=== PATIENT | female | born 1975 | race Caucasian/White ===

== ENCOUNTER → 2020-01-16 12:44 | Outpatient (CLI) | payer MEDICARE, SELFPAY ==
[2019-11-02 16:21] VITALS: BMI 33.9
--- NOTE | 2020-01-16 12:51 | VDLE_ITS ---
Reason For Study: Pain in left calf RIGHT LEFT CFV is compressible, spontaneous, phasic, GSV is normal. competent and demonstrates normal CFV is compressible, spontaneous, phasic, augmentation. competent, and demonstrates normal Procedure augmentation. Exam performed in department. FV is compressible, spontaneous, phasic, A preliminary report was called and/or faxed competent and demonstrates normal to Jacobo. augmentation. POP V is compressible, spontaneous, phasic, competent and demonstrates normal augmentation. T/P Trunk is compressible. PTV is compressible. LT PerV is compressible. Interpretation Summary Deep veins of the left lower extremity are patent and compressible segmentally. There is no evidence of left lower extremity deep vein thrombosis. Valvular competence appears intact within the proximal deep venous system on the left . The left great saphenous vein appears patent and compressible segmentally. Ordering Physician: Yris Centeno Referring Physician: uCrtis Kwon Performed By: Nasreen Nieves RVT
== END ==
PROVIDERS: PCP Student in an Organized Health Care Education/Training Program; Referring Provider Nurse Practitioner Family; Visit Provider Nurse Practitioner Family
DX: M79.662 Pain in left lower leg (principal); Z86.718 Personal history of other venous thrombosis and embolism
CPT/HCPCS: 93971

== ENCOUNTER → 2020-06-07 12:35 | Outpatient (CLI) | payer MEDICARE, SELFPAY ==
[2020-06-07 10:46] VITALS: BMI 33.9
[2020-06-07 13:15] LABS: Mucous, Urine 0 SEEN /hpf (<or=2+); Red Blood Cells-Urine 0 SEEN /hpf (0-5)
[2020-06-07 13:28] LABS: Glucose, Dipstick Normal (Normal); Ketone-Dipstick 5 mg/dl (Negative); Leukocyte Esterase-Dipstick 500 /ul (Negative); Nitrite-Dipstick Positive (Negative); Occult Blood-Urine 150 /ul (Negative); Protein-Dipstick 30 mg/dl (Negative); Specific Gravity, Urine 1.025 (1.002-1.030); Urine Clarity Cloudy (Clear); Urine Urobilinogen 8 mg/dl (Normal)
[2020-06-07 13:29] LABS: Color, Urine SEE COMMENT BELOW (Yellow); Urine Bilirubin Dipstick 6 mg/dL (Negative)
[2020-06-07 13:40] LABS: Bacteria 2+ /hpf (None Seen); Squamous Epithelial Cells - UA 5-10 SEEN /hpf (5-10); White Blood Cells >100 SEEN /hpf (0-5)
== END ==
PROVIDERS: PCP Student in an Organized Health Care Education/Training Program; Referring Provider Physician Assistant Surgical; Visit Provider Physician Assistant Surgical
DX: N30.00 Acute cystitis without hematuria (principal); M54.5 Low back pain; R35.0 Frequency of micturition
CPT/HCPCS: 81001; 87086; 87088; 87186

== ENCOUNTER 2020-10-23 11:05 | Outpatient (RCR) | payer MEDICARE, SELFPAY ==
[2020-06-07 10:46] VITALS: BMI 33.9
--- NOTE | 2020-10-23 11:42 | HP.PTEVAL_ITS ---
Patient's Visit Information DANIELLE GRACE is a 45 year old F referred to Physical Therapy by Nathan Polanco PA-C with a diagnosis of lat epicondylitis. Date of Evaluation: 10/23/20 Physical Therapist: Keith Araya DPT, OCS, CSCS - Visit Plan Frequency: 1-2x /Week Duration: 2-4 Weeks Plan: 1-2x/week as needed for 2-4 weeks for. Ensure pain continues to diminish. Stretching adn STM to L wrist extensors. eccentric strength. modalities US as needed. - Subjective Slipped letting dogs out and grabbed banister and grabbed with L arm and it hurts. That was in August. It got a little better but then wosened. Uses L hand alot despite being R handed. Dumping patino with L hand hurts. Gripping items huts. Pain is lateral epicondyle area. It is intermittent since steroids started Wednesday. Now it is almost no there. They will end in 3 days. No other treatments. Sleep is interrupted prior to steroids but is good now. Worse in am prior to steroids. Steroids helped 85-90%. Not employed. Does yoga and this does not stop that. - Pain L lat epicondyle elbow Pain Intensity (Out of 10): 0 Pain Intensity Range: 0, 1 Comment: up to 6/10 last week at this time before steroids. - Objective Walks and transfers normal adn I. Neck ROM is limited to 30 rotations and 28 extension which is normal for this patient and painfree. UE AROM WFL and without pain today. reflexes 2/3 bi and tri. Sensation UE WNL to gross light touch. Strength shoulder 4/5, elbow 4+/5 no pain. wrist extension slightly painful at 4- adn flexion 4+. supination and pronation normal, thumb ext normal and painfree to resistance. Tender spot only over insertion wrist extensors on lat epicondyle minimally. Pt states she is much better since starting steroids and could not have tolerated this 4 days ago. - Goals Goal 1:: Pain abolished 100% Goal Time Frame: 4-6 Weeks Goal 2:: cook food without noticing L UE. Goal Time Frame: 4-6 Weeks Goal 3:: I management of condition Goal Time Frame: 4-6 Weeks - Rehabilitation Potential Physical Therapy Diagnosis: L lat epicondylitis. Rehabilitation Potential: Good - Anticipated Interventions Patient/Client Instruction: Educate patient on: Condition, Plan of Care For the Purpose of:: To decrease pain Therapeutic Exercise to Include: Strength training, Flexibilty training, Passive ROM, Active ROM For the Purpose of:: To decrease pain, To improve nutrient delivery to tissue Manual Therapy Techniques to Include: Soft tissue mobilization For the Purpose of:: To decrease pain Ultrasound (thermal/non thermal): Yes - nonthermal lat epi L For the Purpose of:: To decrease pain, To decrease swelling/inflammation Thank you for the opportunity to evaluate your patient. For Medicare and Medicare HMO plans, please review the plan of care and approve it. It will need to be FAXED BACK to us at [phone] for Medicare purposes. For Medicare only, by signing this I certify the plan of care. Please let me know if there are questions or concerns regarding this plan of care. Physician Signature: Date:
--- NOTE | 2020-12-18 08:19 | HP.PT.NRP ---
DANIELLE GRACE was seen in my office for initial evaluation on 10/23/20. The following Plan of Care was established for this patient: Initial Frequency: 1-2x /Week Initial Duration: 2-4 Weeks Patient/Client Instruction: Educate patient on: Condition, Plan of Care For the Purpose of:: To decrease pain Therapeutic Exercise to Include: Strength training, Flexibilty training, Passive ROM, Active ROM For the Purpose of:: To decrease pain, To improve nutrient delivery to tissue Manual Therapy Techniques to Include: Soft tissue mobilization For the Purpose of:: To decrease pain Ultrasound (thermal/non thermal): Yes - nonthermal lat epi L For the Purpose of:: To decrease pain, To decrease swelling/inflammation This patient was last seen in our office 10/23/20. Pertinent comments regarding their Physical therapy will appear below: Pt seen for eval and was improving. POC established but patient neglected to attend any further visits. at this point, it has been nearly two months adn I will discontinue due to nonattendance. At this point I will be discontinuing this patient from physical therapy. I would be happy to see this patient again in the future if found appropriate by the physician. Thank you! Keith Araya, DPT, OCS, CSCS
== END 2020-10-23 19:00 | disposition home or self-care (01) ==
LOC: PT 11:05
PROVIDERS: PCP Student in an Organized Health Care Education/Training Program; Referring Provider Physician Assistant; Visit Provider Physician Assistant
DX: M77.12 Lateral epicondylitis, left elbow (principal)
CPT/HCPCS: 97110; 97161

== ENCOUNTER 2021-05-30 14:04 | Outpatient (CLI) | payer MEDICARE, SELFPAY ==
[2021-05-30] MEDS: 0.9% Saline Lock 10 ML Syringe IV (14:28)
[2021-05-30 14:32] VITALS: BP 125/87; PULSE 89; RESP 16; TEMP 36.3; O2SAT 97; BMI 36.8
[2021-05-30 15:25] VITALS: BP 114/74; PULSE 89; RESP 18; TEMP 36.6; O2SAT 95
[2021-05-30 16:24] VITALS: BP 120/75; PULSE 89; RESP 16; TEMP 37.2; O2SAT 97
== END 2021-05-30 16:25 | disposition home or self-care (01) ==
LOC: ICUOUT 14:04 → MS3 14:05
PROVIDERS: PCP Student in an Organized Health Care Education/Training Program; Referring Provider Nurse Practitioner Adult Health; Visit Provider Nurse Practitioner Adult Health
DX: Z23 Encounter for immunization (principal); U07.1 COVID-19
CPT/HCPCS: J7050; M0245; A4216; Q0244

== ENCOUNTER 2021-06-02 16:32 | Emergency (ER) | payer MEDICARE, SELFPAY ==
[2021-06-02 16:33] VITALS: BP 115/83; PULSE 91; RESP 18; TEMP 36.6; O2SAT 97; BMI 36.8
--- NOTE | 2021-06-02 18:28 | RAD_ITS ---
HISTORY: covid EXAMINATION/TECHNIQUE: XR Chest 1 View: Portable upright AP chest x-ray COMPARISON: 04/01/16 FINDINGS: LINES/DEVICES: None. LUNGS: No consolidation, edema or effusion. No pneumothorax. MEDIASTINUM AND CARDIOVASCULAR STRUCTURES: Cardiac silhouette not enlarged. Central airways and mediastinal contour are unremarkable. BONES AND SOFT TISSUES: No acute bony abnormalities. Anterior cervical fusion hardware partially imaged. RAD/Chest 1 View IMPRESSION: No radiographic evidence of acute cardiopulmonary disease. at 1853 Reported and signed by: Dawson Serrano MD Electronically Signed: Dawson Serrano MD at 18:52 EDT Tel , Service support ,
--- NOTE | 2021-06-02 18:33 | ED.RN ---
Pt. presents with increased SOB since Wednesday. Tested positive for covid six days ago. Pt. reports productive cough. Lungs clear in all bases.
--- NOTE | 2021-06-02 18:33 | ED.VIS.DYS ---
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 Was diagnosed with Covid 1 week ago. And had symptoms started last Wednesday. She has had intermittent low-grade fevers. Cough and shortness of breath. No hemoptysis. She is currently on prednisone for the last week. She is also had monoclonal antibody therapy on Wednesday. PE Risk Factors: Positive for Prior DVT or PE; Negative for Cancer, OCP + Smoking + > 35, Recent immobilization, Recent surgery and Recent travel Prior similar symptoms: No Recent Illness/Hospitalization: No PFSH PFS Medical History Arthritis Asthma Chronic neck and back pain DISK FUSION HISTORY OF BROKEN NECK HISTORY OF UVULA REMOVAL Knee pain Severe headache Stroke Home Medications clonazepam 0.5 mg PO TID 07/12/13 [History Last Taken 08/16/13] gabapentin 800 mg PO TIDCM 07/12/13 [History Last Taken 08/16/13 800] tizanidine 4 mg PO BID 07/12/13 [History Last Taken 08/16/13 8] acetaminophen 325 mg tablet 325 mg PO ONCE PRN 11/02/19 [History Last Taken Unknown] quetiapine 25 mg tablet 25 mg PO DAILY 11/02/19 [History Last Taken Unknown] ropinirole 1 mg tablet 1 mg PO DAILY 11/02/19 [History Last Taken Unknown] cranberry fruit concentrate 250 mg chewable tablet 250 mg PO TID 06/07/20 [History Last Taken Unknown] hydrocodone-homatropine [Hycodan] 5 ml PO Q6H PRN 4 Days #35 ml 06/02/21 [Rx Last Taken Unknown] Allergy/AdvReac Type Severity Reaction Status Date / Time Sulfa (Sulfonamide Allergy Hives Verified 06/02/21 18:31 Antibiotics) acetaminophen [From [place]] AdvReac Other Verified 06/02/21 18:31 hydrocodone bitartrate AdvReac Other Verified 06/02/21 18:31 [From [place]] Surgical History H/O gastric bypass H/O right knee surgery History of hysterectomy History of tonsillectomy Social History Smoking Status: Never smoker alcohol intake: never ROS ROS ED ROS Narrative Cough, fever and mild shortness of breath. Review of Systems ROS Unobtainable: Denies due to encephalopathy Constitutional Constitutional ED: Reports fever(s) Eyes Eyes: Denies change in vision ENT ENT ED: Denies ear pain or sore throat Cardiovascular Cardiovascular: Denies chest pain Respiratory/Chest Respiratory/Chest: Reports cough and dyspnea Gastrointestinal Gastrointestinal: Denies abdominal pain, diarrhea, nausea or vomiting Genitourinary Genitourinary ED: Denies dysuria Musculoskeletal Musculoskeletal: Reports myalgias Integumentary Denies rash Neurologic Neurologic: Denies headache(s) Psychiatric Psychiatric: Denies depression Endocrine Endocrinology: Denies polyuria Hematologic/Lymphatic Hematologic/Lymphatic: Denies easy bruising Allergic/Immunologic Allergic/Immunologic ED: Denies urticaria EXAM Physical Exam Narrative Exam Narrative: Well-appearing middle-aged female. Vital signs stable afebrile. Pulse ox on my exam while she was lying in bed resting was 96% on room air. She does not look septic or toxic. She is no distress. HEENT exam normal. Moist with memories. Neck nontender no JVD. Lungs clear to auscultation bilateral. Heart regular rhythm no murmur. Rate about 90. Abdomen soft nontender. Moving all 4 extremities. Calves are nontender without edema or cords. Otherwise exam unremarkable. Const Vital Signs: 06/02/21 16:33 06/02/21 18:32 Temperature 97.8 F Temperature Source Temporal Pulse Rate 91 Respiratory Rate 18 Blood Pressure 115/83 H Blood Pressure Mean 93 Pulse Ox 97 Oxygen Delivery Method Room Air Room Air Positive well nourished and well developed; Negative for obese, cachectic, contractures or unkempt General Appearance ED: well developed and NAD; Negative for unkempt, cachectic or contractures Nutritional Appearance: Negative for cachectic or obese HEENT Reports moist mucous membranes atraumatic; Negative for trauma or tenderness Eyes PERRL and EOMs intact bilaterally General Eye ED: Negative for pale conjunctiva Neck no lymphadenopathy, supple, no meningeal signs and no JVD General: Negative for tenderness Resp normal respiratory effort and clear to auscultation bilaterally Auscultation: Negative for rales, rhonchi, wheezes or diminished lung sounds Cardio regular rate, regular rhythm, S1 normal heart sound, S2 normal heart sound and no murmurs GI non-tender, non-distended and no masses Auscultation: normoactive bowel sounds Palpation: soft; Negative for tender, guarding or rebound tenderness present Back/Spine no CVA tenderness and normal to inspection General Back: Negative for CVA tenderness or tenderness Extremity normal to inspection General Extremety ED: Negative for edema or tenderness General Extremity: Negative for edema Neuro oriented x3 and CN's II-XII intact bilaterally Sensorium / Orientation: alert, oriented to person, oriented to place and oriented to time; Negative for orientation impaired, confused, lethargic or stuporous Motor Exam: strength 5/5 throughout Psych mental status grossly normal Appearance: Negative for unkempt Thought Process: normal thought process Skin Lesions: no lesions Rashes: no rashes MDM MDM MDM Narrative Medical decision making narrative: Covid patient fell last week. Has underlying clotting disorder for which she is on Xarelto. She is already on steroids and is already received monoclonal antibody. Currently her sat is 96 to 97% on room air. She will be ambulated with a pulse ox on room air and obtaining a chest x-ray. Repeat exam patient is doing well at 7:15 PM. She was ambulated by nursing without oxygen her sats stayed 95%. She will be discharged home. She is already on steroids. And she requested a cough medication. Radiography Chest X-Ray - ED: 1 View, Read by ED Physician, Normal, Heart, Lungs, Mediastinum, Bony Structures and No Acute Disease Diagnostic Testing: Radiology Impression Chest X-Ray 06/02/21 18:28 IMPRESSION: No radiographic evidence of acute cardiopulmonary disease. at 1853 Reported and signed by: Dawson Serrano MD Electronically Signed: Dawson Serrano MD at 18:52 EDT Tel , Service support , Portable chest x-ray read both by myself and radiologist shows no acute abnormality. Normal cardiac silhouette. No infiltrates. I went over the film with the patient. Discharge Plan Triage Chief Complaint: Shortness of Breath ED Provider: Jose Navarro Dx/Rx/DC Orders Clinical Impression: COVID-19 Instructions: Human Coronaviruses Prescriptions: New hydrocodone-homatropine [Hycodan] 5-1.5 mg/5 mL (5 mL) syrup 5 ml PO Q6H PRN (Reason: cough) 4 Days Qty: 35 RF: 0 No Action acetaminophen [Tylenol] 325 mg tablet 325 mg PO ONCE PRN (Reason: Pain) RF: 0 ropinirole 1 mg tablet 1 mg PO DAILY RF: 0 quetiapine [Seroquel] 25 mg tablet 25 mg PO DAILY RF: 0 Azo Cranberry 250 mg tablet,chewable 250 mg PO TID RF: 0 tizanidine 4 MG tablet 4 mg PO BID RF: 0 gabapentin 800 MG tablet 800 mg PO TIDCM RF: 0 clonazepam 2 MG tablet 0.5 mg PO TID RF: 0 Primary Care Provider: Curtis Kwon Referrals: Curtis Kwon DO [Primary Care Provider] - Activity Restrictions/Additional Instructions: Hycodan as a cough syrup. Tylenol for fever. Plenty of fluids and rest. Continue your prednisone until finished. Follow-up as needed. Disposition Disposition: Home, Self Care
[2021-06-02 19:02] VITALS: O2SAT 98
[2021-06-02 19:18] VITALS: O2SAT 95
== END 2021-06-02 19:29 | disposition home or self-care (01) ==
PROVIDERS: Emergency Provider Emergency Medicine; PCP Student in an Organized Health Care Education/Training Program
DX: U07.1 COVID-19 (principal); Z86.718 Personal history of other venous thrombosis and embolism; Z79.01 Long term (current) use of anticoagulants; Z79.52 Long term (current) use of systemic steroids; Z79.899 Other long term (current) drug therapy
CPT/HCPCS: 71045; 99282

== ENCOUNTER 2021-07-14 09:54 | Emergency (ER) | payer MEDICARE, SELFPAY ==
[2021-07-14 09:54] VITALS: BP 175/100; PULSE 40; RESP 16; TEMP 36.6; O2SAT 100; BMI 35.2
--- NOTE | 2021-07-14 10:09 | CT_ITS ---
STUDY: CT BRAIN WITHOUT CONTRAST REASON FOR EXAM: Female, 46 years old. Headache RADIATION DOSAGE (If Supplied By Facility): CTDIvol = ( 44.99 ) mGy, DLP = ( 796.11 ) mGycm TECHNIQUE: Transaxial CT imaging of the brain was performed without administration of intravenous contrast material. Individualized dose optimization techniques were used for this CT. COMPARISON: No relevant priors. FINDINGS: Normal soft tissue structures. Normal calvarium. Normal size ventricles and extra-axial spaces for the patient''s age. Normal white matter tracts of the cerebral hemispheres. Normal basal ganglia and thalami. Normal brainstem. Normal cerebellum. There is no intracranial hemorrhage. There are no findings of an acute ischemic infarction. Normal visualized paranasal sinuses. CT/Brain/Head without Contrast IMPRESSION: Normal unenhanced CT scan of the brain. Electronically Signed: Clint Salazar MD at 11:04 EST , Service support ,
--- NOTE | 2021-07-14 10:11 | EX.ED.VIS.HA ---
HPI History of Present Illness Chief Complaint: Headache Narrative Narrative: 46-year-old female presenting with headache. She states he has a history of migraines and states she does have some components of this however she states she also has a factor VIII clotting disorder and has not taken her Xarelto for a few days because her prescription ran out prior to the weekend and she did not have the ability to get a refill. Patient states she was not feeling well so she did not take it. She developed a headache in the interim. She is not had any trauma to her head. [facility] Medical History Arthritis Asthma Chronic neck and back pain DISK FUSION HISTORY OF BROKEN NECK HISTORY OF UVULA REMOVAL Knee pain Severe headache Stroke Home Medications gabapentin 800 mg PO TIDCM 07/12/13 [History Last Taken 08/16/13 800] tizanidine 4 mg PO BID 07/12/13 [History Last Taken 08/16/13 8] acetaminophen 325 mg tablet 325 mg PO ONCE PRN 11/02/19 [History Last Taken Unknown] quetiapine 25 mg tablet 25 mg PO DAILY 11/02/19 [History Last Taken Unknown] cranberry fruit concentrate 250 mg chewable tablet 250 mg PO TID 06/07/20 [History Last Taken Unknown] pantoprazole 20 mg PO DAILY 07/14/21 [History Last Taken Unknown] prazosin 2 mg PO DAILY 07/14/21 [History Last Taken Unknown] rivaroxaban [Xarelto] 20 mg PO DAILY 07/14/21 [History Last Taken Unknown] Allergy/AdvReac Type Severity Reaction Status Date / Time Sulfa (Sulfonamide Allergy Hives Verified 07/14/21 09:57 Antibiotics) acetaminophen [From [place]] AdvReac Other Verified 07/14/21 09:57 hydrocodone bitartrate AdvReac Other Verified 07/14/21 09:57 [From [place]] Surgical History H/O gastric bypass H/O right knee surgery History of hysterectomy History of tonsillectomy Social History Smoking Status: Never smoker alcohol intake: never ROS ROS ED Constitutional Constitutional ED: Denies chills or fever(s) Eyes Eyes: Denies blurry vision or diplopia ENT ENT ED: Denies rhinorrhea or sore throat Cardiovascular Cardiovascular: Denies chest pain or palpitations Respiratory/Chest Respiratory/Chest: Denies cough or dyspnea Gastrointestinal Gastrointestinal: Reports nausea; Denies abdominal pain, diarrhea or vomiting Genitourinary Genitourinary ED: Denies dysuria or hematuria Musculoskeletal Musculoskeletal: Denies arthralgias, myalgias or neck pain Integumentary Denies rash Neurologic Neurologic: Reports headache(s); Denies paresthesias EXAM Physical Exam Const Vital Signs: 07/14/21 09:54 07/14/21 12:12 Temperature 97.9 F Temperature Source Temporal Pulse Rate 40 L 88 Respiratory Rate 16 18 Blood Pressure 175/100 H 134/62 H Blood Pressure Mean 125 86 Pulse Ox 100 96 Oxygen Delivery Method Room Air Room Air Positive well nourished General Appearance ED: NAD HEENT Reports normocephalic and moist mucous membranes atraumatic Eyes PERRL and EOMs intact bilaterally Resp normal respiratory effort and clear to auscultation bilaterally Cardio regular rate and regular rhythm Neuro oriented x3, CN's II-XII intact bilaterally and no sensory deficits noted Sensorium / Orientation: awake and alert Speech: speech normal Motor Exam: strength 5/5 throughout Skin Lesions: no lesions Rashes: no rashes MDM MDM MDM Narrative Medical decision making narrative: Patient presenting with headache. She states he supposed to be on Xarelto for clotting disorder but has not been on this. She also has history of migraine. Patient treated for migraine with Reglan, Benadryl. She did have a CT scan of the brain which is negative. On reevaluation she improved. I suspect this is likely due to migraine headache. She is going to stop and get her Xarelto on the way home. Patient discharged home in stable condition. Impression: 1. Headache Radiography Diagnostic Testing: Clinical Impression(s) from Imaging Studies Brain CT 07/14/21 10:09 IMPRESSION: Normal unenhanced CT scan of the brain. Electronically Signed: Clint Salazar MD at 11:04 EST , Service support , Discharge Plan Triage Chief Complaint: Headache ED Provider: Antoni Austin Dx/Rx/DC Orders Instructions: ED Headache Unspecified Prescriptions: No Action acetaminophen [Tylenol] 325 mg tablet 325 mg PO ONCE PRN (Reason: Pain) RF: 0 quetiapine [Seroquel] 25 mg tablet 25 mg PO DAILY RF: 0 Azo Cranberry 250 mg tablet,chewable 250 mg PO TID RF: 0 tizanidine 4 MG tablet 4 mg PO BID RF: 0 gabapentin 800 MG tablet 800 mg PO TIDCM RF: 0 pantoprazole 20 mg tablet,delayed release (DR/EC) 20 mg PO DAILY RF: 0 prazosin 2 mg capsule 2 mg PO DAILY RF: 0 Xarelto 20 mg tablet 20 mg PO DAILY RF: 0 Primary Care Provider: Curtis Kwon Referrals: Curtis Kwon DO [Primary Care Provider] - Disposition Disposition: Home, Self Care Discharge Date/Time: 07/14/21 12:23
[2021-07-14] MEDS: 0.9% Normal Saline 1,000 ML 999 ML IV (10:38)
[2021-07-14] MEDS: Metoclopramide 10 MG/2 ML Vial IV (10:38)
[2021-07-14] MEDS: DiphenhydrAMINE 50 MG/ML Syringe 25 MG IV (10:38)
[2021-07-14 12:12] VITALS: BP 134/62; PULSE 88; RESP 18; O2SAT 96
== END 2021-07-14 12:23 | disposition home or self-care (01) ==
PROVIDERS: Emergency Provider Student in an Organized Health Care Education/Training Program; PCP Student in an Organized Health Care Education/Training Program
DX: R51.9 Headache, unspecified (principal); Z79.01 Long term (current) use of anticoagulants; Z79.899 Other long term (current) drug therapy
CPT/HCPCS: 70450; 96374; 96375; 99283; J7030; A4216